=== PATIENT | female | born 1990 | race Caucasian/White ===

== ENCOUNTER 2017-01-21 17:48 | Emergency (ER) | payer MEDICAID, OTHER ==
[~2017-01-21] VITALS: Ht 157.5 cm; Wt 109.0 kg
[2017-01-21 18:09] VITALS: BP 122/70
== END 2017-01-21 23:00 | disposition left against medical advice (07) ==
LOC: ER 22:41
DX: R07.9 Chest pain, unspecified (principal); Z53.21 Procedure and treatment not carried out due to patient leaving prior to being seen by health care provider

== ENCOUNTER 2017-09-24 16:28 | Emergency (ER) | payer SELFPAY ==
[~2017-09-24] VITALS: Ht 162.6 cm; Wt 90.0 kg
[2017-09-24 17:03] VITALS: BP 112/71
== END 2017-09-24 22:09 | disposition left against medical advice (07) ==
LOC: ER 18:27
DX: Z53.21 Procedure and treatment not carried out due to patient leaving prior to being seen by health care provider (principal); F41.9 Anxiety disorder, unspecified; E03.9 Hypothyroidism, unspecified

== ENCOUNTER 2017-11-20 23:06 | Emergency (ER) | payer SELFPAY ==
[~2017-11-20] VITALS: Ht 157.5 cm; Wt 84.0 kg
[2017-11-21] MEDS ORDERED: KETOROLAC 30MG/ML VIAL IV STA (01:31)
[2017-11-21] MEDS ORDERED: KETOROLAC 60MG/2ML VIAL IM ONE (01:45)
[2017-11-21 01:46] LABS: BASOPHILS % 0.2 % (0.0-2.0); EOSINOPHILS % 0.7 % (0.0-5.0); HEMATOCRIT. 37.1 % (36.0-48.0); HEMOGLOBIN. 12.5 g/dL (12.0-16.0); LYMPHOCYTES % 18.7 % (20.0-50.0); MEAN CORPUSCULAR HEMOGLOBIN 27.5 pg (28.0-32.0); MEAN CORPUSCULAR VOLUME 81.9 fL (81.0-99.0); MEAN PLATELET VOLUME 8.3 fl (7.4-10.4); MONOCYTES % 5.6 % (2.0-8.0); NEUTROPHILS % 74.8 % (40.0-76.0); PLATELET 281 x1000/uL (130-400); RED BLOOD CELL COUNT 4.53 mill/uL (4.2-5.4); RED CELL DISTRIBUTION WIDTH 13.6 % (11.6-14.6)
[2017-11-21 01:52] LABS: CHLORIDE 108 mEq/L (98-107)
[2017-11-21 01:55] LABS: D-DIMER 0.52 mg/L FEU (<0.50); PROTHROMBIN TIME 10.7 sec (9.4-11.6)
[2017-11-21 01:57] LABS: HCG SCREEN NEGATIVE
[2017-11-21] MEDS ORDERED: IOHEXOL-350 100 ML BOTTLE ONE (03:56)
[2017-11-21 04:58] VITALS: BP 107/69
== END 2017-11-21 05:00 | disposition home or self-care (01) ==
LOC: ER 23:06
DX: R07.9 Chest pain, unspecified (principal); F41.9 Anxiety disorder, unspecified
CPT/HCPCS: 36415; 71045; 71275; 80053; 83880; 84484; 84703; 85025; 85379; 85610; 93005; 96372; 99285; J1885; Q9967; Z7610

== ENCOUNTER 2019-01-23 00:40 | Emergency (ER) | payer OTHER ==
[~2019-01-23] VITALS: Ht 160 cm; Wt 96.0 kg
[2019-01-23 01:43] VITALS: BP 113/65
== END 2019-01-23 01:43 | disposition home or self-care (01) ==
LOC: ER 00:40
DX: F41.0 Panic disorder [episodic paroxysmal anxiety] (principal)
CPT/HCPCS: 93005; 99283

== ENCOUNTER 2019-04-11 17:26 | Emergency (ER) | payer SELFPAY ==
[~2019-04-11] VITALS: Ht 162.6 cm; Wt 104.0 kg
[2019-04-11 17:35] VITALS: BP 113/71
== END 2019-04-11 22:10 | disposition left against medical advice (07) ==
LOC: ER 17:26
DX: Z53.21 Procedure and treatment not carried out due to patient leaving prior to being seen by health care provider (principal)

== ENCOUNTER 2019-04-30 11:54 | Emergency (ER) | payer SELFPAY ==
[~2019-04-30] VITALS: Ht 157.5 cm; Wt 104.0 kg
[2019-04-30] MEDS ORDERED: KETOROLAC 30MG/ML VIAL IM ONE (15:15)
[2019-04-30 16:18] VITALS: BP 122/78
== END 2019-04-30 16:16 | disposition home or self-care (01) ==
LOC: ER 11:54
DX: M54.6 Pain in thoracic spine (principal); G44.209 Tension-type headache, unspecified, not intractable
CPT/HCPCS: 99283

== ENCOUNTER 2020-03-31 17:46 | Emergency (ER) | payer OTHER ==
[~2020-03-31] VITALS: Ht 154.9 cm; Wt 79.5 kg
[2020-03-31] MEDS ORDERED: LEVO25TA7 PO (17:56)
[2020-03-31] MEDS ORDERED: ONDANSETRON HCL 4MG/2ML INJ IV STA (18:09)
[2020-03-31] MEDS ORDERED: SODIUM CHLORIDE 0.9% 500 ML IV ONE (18:15)
[2020-03-31 19:08] LABS: BASOPHILS % 0.6 % (0.0-2.0); EOSINOPHILS % 0.8 % (0.0-5.0); HEMATOCRIT. 34.1 % (36.0-48.0); HEMOGLOBIN. 11.4 g/dL (12.0-16.0); LYMPHOCYTES % 16.2 % (20.0-50.0); MEAN CORPUSCULAR HEMOGLOBIN 26.8 pg (28.0-32.0); MEAN CORPUSCULAR VOLUME 80.4 fL (81.0-99.0); MEAN PLATELET VOLUME 8.5 fl (7.4-10.4); MONOCYTES % 4.7 % (2.0-8.0); NEUTROPHILS % 77.7 % (40.0-76.0); PLATELET 271 x1000/uL (130-400); RED BLOOD CELL COUNT 4.24 mill/uL (4.2-5.4); RED CELL DISTRIBUTION WIDTH 15.5 % (11.6-14.6)
[2020-03-31 19:14] LABS: CHLORIDE 110 mEq/L (98-107)
[2020-03-31] MEDS ORDERED: ACETAMINOPHEN 500MG TABLET PO ONE (19:15)
[2020-03-31] MEDS ORDERED: ACETAMINOPHEN 325MG TABLET PO ONE (21:45)
[2020-03-31] MEDS ORDERED: AMLODIPINE 5MG TABLET PO NR (21:45)
[2020-03-31 22:45] LABS: CLARITY URINE CLEAR (CLEAR); COLOR URINE YELLOW (YELLOW); KETONES URINE NEGATIVE (NEGATIVE); LEUKOCYTE ESTERASE URINE 3+ (NEGATIVE); NITRITE URINE NEGATIVE (NEGATIVE); OCCULT BLOOD URINE NEGATIVE (NEGATIVE); PROTEIN URINE NEGATIVE (NEGATIVE); SPECIFIC GRAVITY URINE 1.012 (1.005-1.030); UROBILINOGEN URINE 0.2 E.U./dL (0.2-1.0)
[2020-03-31 23:19] VITALS: BP 121/74
== END 2020-03-31 23:20 | disposition home or self-care (01) ==
LOC: ER 17:59
DX: O16.5 Unspecified maternal hypertension, complicating the puerperium (principal); O86.20 Urinary tract infection following delivery, unspecified
CPT/HCPCS: 36415; 80053; 81003; 85025; 87086; 93005; 96360; 96361; 99285; J7040; J2405